=== PATIENT | female | born 1955 | race Caucasian/White ===

== ENCOUNTER 2018-03-17 17:27 | Emergency (ER) | payer OTHER, MEDICARE ==
[~2018-03-17] VITALS: Ht 160 cm; Wt 117.9 kg
[~2018-03-17 17:27] MED LIST: ABILIFY2 MG PO; ALPRAZOLAM0.25 M1 PO; AMBIEN10 M1 PO; CARAFATE1 G1 PO; CARAFATE1 GM PO; COPAXONE 20M20 MG/ML SC; COPAXONE20 MG/1 ML SC; CYANOCOBAL1000 MCG/2 IM; DOCUSATE SODIU100 M3 PO; DURAGESIC12 MCG/HR TOP; EFFEXOR XR150 M1 PO; FERROUS SULFAT325 M3 PO; GABAPENTIN TAB600 MG PO; GABAPENTIN600 M1 PO; KETOROLAC TROME10 M1 PO; MIRALAX17 GM PO; MODAFINIL200 M1 PO; OMEPRAZOLE40 M1 PO; ONE DAILY MULT1 EAC2 PO; ORPHENADRINE C100 MG PO; PERCOCET 325 MG1 TA2 PO; PERCOCET 5-3251 EACH PO; PRAVACHOL80 M1 PO; PRISTIQ ER100 MG PO; RANITIDINE HCL300 M1 PO; RANITIDINE HCL300 M2 PO; VALIUM10 M1 PO; VESICARE10 MG PO; VITAMIN D250000 UNIT PO
--- NOTE | 2018-03-17 18:20 | RADIOLOGY REPORT ---
EXAMINATION: XR KNEE, RIGHT XR KNEE, LEFT CLINICAL INFORMATION: Bilateral knee pain. COMPARISON: None TECHNIQUE: 4 views of each knee FINDINGS: Right knee: No fracture or subluxation. Moderate medial compartment joint space narrowing. Tricompartmental marginal osteophytes are present. Small joint effusion noted. Left knee: No acute fracture or subluxation. Mild medial compartment joint space narrowing. Small tricompartmental marginal osteophytes. Small joint effusion. Vascular calcifications. IMPRESSION: No acute osseous abnormality. Moderate tricompartmental degenerative changes at the right knee, greatest at the medial compartment. Mild tricompartmental degenerative changes of the left knee. Small bilateral joint effusion.
--- NOTE | 2018-03-17 18:38 | ED GENERAL ADULT ---
History of Present Illness General Chief Complaint: Lower Extremity Problems Stated Complaint: HX OF CHRONIC BILATERAL 10/10 LEG PAIN Source: patient Exam Limitations: no limitations Vital Signs & Intake/Output Vital Signs & Intake/Output Vital Signs Date Time Temp Pulse Resp B/P B/P Pulse O2 O2 Flow FiO2 Mean Ox Delivery Rate 03/17 1910 98.2 80 16 144/80 98 Room Air Room Air 03/17 1906 Room Air 03/17 1733 97.4 85 18 142/79 96 Room Air Allergies Coded Allergies: adhesive (Intermediate, BLISTERS 05/28/17) Penicillins (HIVES 01/21/16) ciprofloxacin (From CIPRO) (RASH 01/21/16) codeine (MIGRAINES 01/21/16) erythromycin base (RASH 01/21/16) hydrochlorothiazide (RASH 01/21/16) latex (UNKNOWN 03/19/16) meloxicam (RASH 01/21/16) methocarbamol (From ROBAXIN) (RASH 01/21/16) morphine (RASH 01/21/16) tetracycline (RASH 01/21/16) Reconcile Medications Acetaminophen 500 MG TABLET 2 TAB PO Q6 PRN PAIN Aripiprazole (Abilify) 2 MG TABLET 1 TAB PO QPM MENTAL HEALTH (Reported) Cyanocobalamin (Vitamin B-12) (Cyanocobalamin Injection) 1,000 MCG/ML VIAL 1 ML IM QW SUPPLEMNET (Reported) Cyclobenzaprine HCl 10 MG TABLET 1 TAB PO TID PRN PAIN Desvenlafaxine Succinate (Pristiq ER) 100 MG TAB.ER.24H 1 TAB PO DAILY DEPRESSION (Reported) Ergocalciferol (Vitamin D2) (Vitamin D2) 50,000 UNIT CAPSULE 1 CAP PO QMON VITAMIN SUPPORT (Reported) Ferrous Sulfate 325 MG (65 MG IRON) TABLET 1 TAB PO DAILY SUPPLEMENT ( Reported) Gabapentin 600 MG TABLET 2 TAB PO BID NERVE PAIN (Reported) Glatiramer Acetate (Copaxone) 20 MG/1 ML SYRINGE 20 MG SC DAILY MS (Reported) Ketorolac Tromethamine 10 MG TABLET 1 TAB PO Q6P PRN pain patient treated with IM Toradol in the emergency department Modafinil 200 MG TABLET 1 TAB PO DAILY SHIFT DISORDER (Reported) Multivitamin (One Daily Multivitamin) 1 EACH TABLET 1 TAB PO DAILY VITAMIN SUPPORT (Reported) Omeprazole 40 MG CAPSULE.DR 1 CAP PO BID ACID REFLUX (Reported) Orphenadrine Citrate 100 MG TABLET.ER 1 TAB PO BIDP PRN muscle spasms Pravastatin Sodium (Pravachol) 80 MG TABLET 1 TAB PO DAILY CHOLESTEROL ( Reported) Ranitidine HCl 300 MG TABLET 1 TAB PO TID GI (Reported) Solifenacin Succinate (Vesicare) 10 MG TABLET 1 TAB PO DAILY BLADDER ( Reported) Sucralfate (Carafate) 1 GM TABLET 1 TAB PO 4 TIMES/DAY COAT STOMACH (Reported ) Venlafaxine HCl (Effexor XR) 150 MG CAP.ER.24H 1 CAP PO DAILY MENTAL HEALTH ( Reported) Zolpidem Tartrate (Ambien) 10 MG TABLET 1 TAB PO QPM SLEEP (Reported) Triage Note: PT BIBA TO TRIAGE C/O 08/25 BILAT LEG PAIN, CHRONIC PER PT. PER EMS PT WAS W[place]ING [place]OUND [place] ALL DAY. PT STATES HX MS. Triage Nurses Notes Reviewed? yes Onset: Abrupt Duration: day(s): (2), constant, continues in ED, getting worse Timing: recent history Injury Environment: street Severity: moderate, severe Severity Numbers: 10 No Modifying Factors: none LMP (ages 10-50): post menopausal, unknown : No Patient currently breastfeeds: No HPI: 62 female past medical history of multiple sclerosis, anxiety, obesity, osteoarthritis, fibromyalgia presents for evaluation of bilateral knee pain. Patient states that she has a history of chronic knee pain and has been diagnosed with severe arthritis. She sees Dr. Mason for this. She states that yesterday she was in [facility] and spent the day walking around for several hours. States that when she got home she noted severe pain in both knees. The pain is worse with movement but she is able to walk however it is very difficult. No swelling there is no trauma. No numbness or tingling no hip pain or ankle pain. She's not taking any medicine for this. No calf swelling or pain. No chest pain or shortness of breath no back pain. (Saúl Guzman) Past History Travel History Traveled to [place] past 21 day No Medical History Any Pertinent Medical History? 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 No (Saúl Guzman) Review of Systems Review of Systems Constitutional: Reports: no symptoms. EENTM: Reports: no symptoms. Respiratory: Reports: no symptoms. Cardiovascular: Reports: no symptoms. GI: Reports: no symptoms. Genitourinary: Reports: no symptoms. Musculoskeletal: Reports: joint pain, joint swelling, muscle pain, muscle stiffness. Skin: Reports: no symptoms. Neurological/Psychological: Reports: no symptoms. Hematologic/Endocrine: Reports: no symptoms. Immunologic/Allergic: Reports: no symptoms. All Other Systems: Reviewed and Negative (Saúl Guzman) Physical Exam Physical Exam General Appearance: well developed/nourished, no apparent distress, alert, awake , obese Head: atraumatic, normal appearance Eyes: Bilateral: normal appearance, EOMI. Ears, Nose, Throat: hearing grossly normal Neck: normal inspection, supple, full range of motion Respiratory: normal breath sounds, chest non-tender, no respiratory distress, lungs clear Cardiovascular: regular rate/rhythm, normal peripheral pulses Peripheral Pulses: 2+ radial (R), 2+ radial (L) Back: normal inspection, normal range of motion, no vertebral tenderness Extremities: BILATERAL KNEES ARE SWOLLEN AND DIFFUSELY TENDER. fULL RANGE OF MOTION IS INTACT. nO PAIN WITH MEDIOLATERAL STRESS. nEGATIVE ANTERIOR POSTERIOR DRAWER. nO ERYTHEMA. nO BRUISING. pATIENT IS ABLE TO WALK AND BEAR WEIGHT. nO HIP OR ANKLE SWELLING. nEUROVASCULAR SUPPLY IS INTACT Neurologic/Psych: no motor/sensory deficits, awake, alert, oriented x 3, normal gait Skin: intact, normal color, warm/dry Core Measures ACS in differential dx? No CVA/TIA Diagnosis: No Sepsis Present: No Sepsis Focused Exam Completed? No (Saúl Guzman) Progress Differential Diagnoses I considered the following diagnoses in my evaluation of the patient: [ Osteoarthritis, sprain, ligamentous tear, fracture] Plan of Care: Patient seen and evaluated. She history of obesity and osteoarthritis. She was walking around [facility] yesterday and developed worsening pain afterwards. The pain is located diffusely in her knee there is no direct trauma. She is currently able to walk. X-rays were obtained and show evidence of moderate osteoarthritis without fracture or effusion. No signs of septic arthritis. Patient is able to walk and bear weight. She was medicated here with FLEXERIL and Tylenol. She is feeling better. She is given a prescription for FKLEXERIL and Tylenol to continue. Advised rest ice elevation depression. Ted wrap. Follow-up with orthopedics. Discussed return precautions patient agrees Diagnostic Imaging: Viewed by Me: Radiology Read. Discussed w/RAD: Radiology Read. Radiology Impression: PATIENT: AVA RAY PRESENT AGE: 62 PATIENT ACCOUNT NO: [id number] : 53 LOCATION: [facility] ORDERING PHYSICIAN: Saúl TOTH SERVICE DATE: 03/17/18 EXAM TYPE: RAD - XRY-KNEE COMPLETE LEFT; XRY-KNEE COMPLETE RIGHT EXAMINATION: XR KNEE, RIGHT XR KNEE, LEFT CLINICAL INFORMATION: Bilateral knee pain. COMPARISON: None TECHNIQUE : 4 views of each knee FINDINGS: Right knee: No fracture or subluxation. Moderate medial compartment joint space narrowing. Tricompartmental marginal osteophytes are present. Small joint effusion noted. Left knee: No acute fracture or subluxation. Mild medial compartment joint space narrowing. Small tricompartmental marginal osteophytes. Small joint effusion. Vascular calcifications. IMPRESSION: No acute osseous abnormality. Moderate tricompartmental degenerative changes at the right knee, greatest at the medial compartment. Mild tricompartmental degenerative changes of the left knee. Small bilateral joint effusion. DICTATED BY: Rodolfo De La Fuente MD DATE/TIME DICTATED: 03/17/181808 FLUID PUMP OPERATOR:MERCEDES DATE/TIME TRANSCRIBED:03/17/181808 CONFIDENTIAL, DO NOT COPY WITHOUT APPROPRIATE AUTHORIZATION. <Electronically signed in Other Vendor System> SIGNED BY: Rodolfo De La Fuente MD 03/17/18 182 Initial ED EKG: none (Bill TOTH,Saúl) Departure Departure Disposition: HOME OR SELF CARE Condition: Stable Clinical Impression Primary Impression: Bilateral knee pain Qualifiers: Chronicity: acute Qualified Codes: M25.561 - Pain in right knee; M25.562 - Pain in left knee Referrals: Alicia LOREDO,Jasper Medina (PCP/Family) Ziyad Mason MD Additional Instructions: Rest, avoid excessive weightbearing and walking. Tylenol ibuprofen for pain. Cyclobenzaprine can be used every 8 hours as needed this is a muscle relaxer. Keep your legs elevated and apply ice 15-20 minutes every few hours. Follow-up with your orthopedic doctor. Monitor symptoms return with any concerns. Departure Forms: Customer Survey General Discharge Information Prescriptions: Current Visit Scripts Cyclobenzaprine HCl 1 TAB PO TID PRN PAIN #30 TAB Acetaminophen 2 TAB PO Q6 PRN PAIN #30 TAB (Saúl Guzman) PA/WELL POINT PUMPING SUPERVISOR Co-Sign Statement Statement: ED Attending supervision documentation- x I saw and evaluated the patient. I have also reviewed all the pertinent lab results and diagnostic results. I agree with the findings and the plan of care as documented in the PA's/WELL POINT PUMPING SUPERVISOR's documentation. [] I have reviewed the ED Record and agree with the PA's/WELL POINT PUMPING SUPERVISOR's documentation. [] Additions or exceptions (if any) to the PAs/WELL POINT PUMPING SUPERVISOR's note and plan are summarized below: [] (Mat LOREDO,Deangelo) Critical Care Note Critical Care Note Critical Care Time: non-applicable (Saúl Guzman)
[2018-03-17] MEDS ORDERED: CYCLOBENZAPRINE10 M1 PO (18:49)
[2018-03-17] MEDS ORDERED: ACETAMINOPHEN500 M4 PO (18:49)
[2018-03-17 19:10] VITALS: BP 144/80
== END 2018-03-17 19:10 ==
LOC: ERH 17:27
DX: M25.561 Pain in right knee (principal); M25.562 Pain in left knee
CPT/HCPCS: 73562-LT; 73562-RT